=== PATIENT | female | born 1990 | race Caucasian/White ===

== ENCOUNTER 2016-11-09 00:05 | Inpatient (IN) | payer OTHER ==
[2016-11-09] MEDS ORDERED: RINGER'S SOLUTION,LACTATED 1,000 ML IV PRN (00:35)
[2016-11-09] MEDS ORDERED: OXYTOCIN/DEXTROSE 5%-WATER 30 UNITS/500 ML BAG IV ONE ×3 (00:35→10:38)
[2016-11-09] MEDS ORDERED: LIDOCAINE HCL 50 ML VIAL PERI PRN (00:35)
[2016-11-09] MEDS ORDERED: BUTORPHANOL TARTRATE 2 MG/ML VIAL IV PRN (00:35)
[2016-11-09] MEDS ORDERED: ONDANSETRON HCL/PF 2 MG/ML VIAL IV PRN ×2 (00:35→07:43)
[2016-11-09] MEDS ORDERED: RINGER'S SOLUTION,LACTATED 1,000 ML IV ONE (00:35)
[2016-11-09] MEDS: DEXTROSE 5%-LACTATED RINGERS 1,000 ML IV PRN ×2 (00:55→09:16)
[2016-11-09] MEDS ORDERED: NALOXONE HCL 1 MG/1 ML SYRG IV PRN (07:43)
[2016-11-09] MEDS ORDERED: BUPIVACAINE HCL/0.9 % NACL/PF 250 ML EP PRN (07:43)
--- NOTE | 2016-11-09 07:49 | OR ---
Anesthesia Pre Procedure Eval Date of Service: 11/09/16 Pre Procedure Evaluation: Last Vital Signs Temp 36.4 C L 07/24/14 07:00 Pulse Resp BP 118/65 07/24/14 07:00 Pulse Ox Anesthesia Pre Procedure Evaluation Heart Rate: 96 Blood Pressure: 126/82 Temperature: 36.6 Respiratory Rate: 18 SaO2: 99% DATE: 11/09/2016 TIME: 7:45 AM INDICATIONS: Active labor, pain control PAST MEDICAL HISTORY: Multipara patient being induced for labor requesting labor analgesia History of GERD: No History of smoking: No History of sleep apnea: No EXAM: Heart regular; lungs clear ASSESSMENT OF MEDICAL STATUS: Appropriate candidate for labor analgesia PLANNED PROCEDURE: Epidural placement for labor analgesia Home Medications: HOME MEDICATIONS RX: Vits96/Iron Fum/Folic [ S] 1 tab PO DAILY 05/30/13 [Last Taken 11/07/16 08:00] Ascorbic Acid [Vitamin C] 500 mg PO DAILY 07/22/14 [Last Taken 11/07/16 08:00]
--- NOTE | 2016-11-09 08:05 | OR ---
Anesthesia Procedure Note - Anesthesia Procedure Note Date of Service: 11/09/16 Narrative: Vital Signs - Last Taken Temp 36.4 C L 07/24/14 07:00 Pulse Resp BP 118/65 07/24/14 07:00 Pulse Ox 11/09/16 08:02 ANESTHESIA PROCEDURE NOTE Date of Procedure: 11/09/2016 Time of procedure: 07 40. Performed by: JAQUELIN Huitron CRNA, MSN Supervisor Laboratory Animal Facility: Yamilet Argueta RN. Preprocedure diagnosis: Labor induction, labor pain. Post procedure diagnosis: Same. Procedure:Epidural for labor analgesia L3 4. Indications: Labor pain. Findings: See below. Details of the procedure: The patient was placed on the side of the bed in sitting positionand prepped with DuraPrep then draped in a sterile fashion. Lidocaine 1% was infiltrated to the skin and subcutaneous tissues at the level of the L3 4 interspace. An 18-gauge Touhy needle was used to approach the epidural space with loss of resistance technique. Since the patient is requesting ambulation at this point and later analgesia no fentanyl was used and the epidural catheter was then threaded approximately 4 cm in the epidural needle was removed. The catheter was taped in place and after careful aspiration 3 mL of 1.5% lidocaine with 1-200,000 epinephrine was injected without change in maternal heart rate or sensorium. . EBL: Minimal. Fluids: N/A. Specimen: N/A. Post procedure condition: The patient tolerated the procedure well. No complications were noted. Thank you for this consultation. Christian Chase CRNA, ARNP, MSN
--- NOTE | 2016-11-09 08:51 | PN ---
Progess Note - Interim Narrative: 11/09/16 08:43 Pt is comfortable but feeling the contractions. VSS SVE: /-2, SROM during check with copious amount of clear fluid FHTs: 140's, mod jessica, no decels, + accels [place]: q2-4 min A/P: Cont. current plan Anticipate
[2016-11-09] MEDS ORDERED: BENZOCAINE/MENTHOL 81 SPRAY CAN TP PRN (10:38)
[2016-11-09] MEDS ORDERED: oxyCODONE HCL/ACETAMINOPHEN 1 TAB TABLET PO PRN ×2 (10:38)
[2016-11-09] MEDS ORDERED: HYDROCORTISONE 30 APPL TUBE TP PRN (10:38)
[2016-11-09] MEDS ORDERED: SENNOSIDES 8.6 MG TABLET PO PRN (10:38)
[2016-11-09] MEDS ORDERED: BISACODYL 10 MG SUPP.RECT RC PRN (10:38)
[2016-11-09] MEDS ORDERED: GLYCERIN/WITCH HAZEL LEAF 40 APPL BOX TP PRN (10:38)
--- NOTE | 2016-11-09 10:41 | OR ---
Operative Report - Dictated Report Narrative: Spontaneous Vaginal Delivery Viable female with APGARS of 8 at 1 minute and 9 at 5 minutes. She delivered at 1019. Presentation was RIKA. The left anterior shoulder delivered with gentle downward traction followed by posterior shoulder and the remainder of the baby. Cord was clamped and cut after approximately 90 seconds. Weight: 8 pounds 3.5 ounces or 3728 g Placenta was delivered spontaneously and intact. The first-degree perineal laceration was noted and was hemostatic but would heal better with reapproximation so this was done with 3-0 Vicryl in a subcuticular fashion. Estimated blood loss: 100 ml Mother and baby tolerated delivery well. History for MU Definition: * The number of deliveries resulting in a live the patient experienced prior to current hospitalization * The previous delivery of live twins or any live multiple gestation is considered one live event. *If primagravida or nulliparous is documented select zero for the number of previous live births. Live Events: 2
[2016-11-09] MEDS: IBUPROFEN 800 MG TABLET PO PRN ×2 (14:10→20:21)
[2016-11-09] MEDS: DOCUSATE SODIUM 100 MG CAPSULE PO SCH (20:21)
[2016-11-10] MEDS: IBUPROFEN 800 MG TABLET PO PRN ×3 (02:41→16:09)
[2016-11-10] MEDS: DOCUSATE SODIUM 100 MG CAPSULE PO SCH ×2 (08:44→20:10)
--- NOTE | 2016-11-10 11:04 | PN ---
Subjective - Date and Time Seen Date: 11/10/16 Subjective Narrative: day 1, s/p doing well. no complaints. . normal lochia. Objective - Vitals Vitals: Last Vital Signs Temp 36.8 C 11/10/16 08:30 Pulse 88 11/10/16 08:30 Resp 20 11/10/16 08:30 BP 120/64 11/10/16 08:30 Pulse Ox 98 11/10/16 08:30 - Exam Constitutional: Present: Alert, Oriented x3, Cooperative Respiratory: Present: no respiratory distress Cardiovascular/Chest: Present: normal peripheral pulses Abdomen: Present: soft, nontender, nondistended, other - fundus firm at umbilicus. Extremity: Present: normal range of motion, no pedal edema, no calf tenderness Skin Exam: Present: normal color, warm/dry, no cyanosis Eye contact: Present: cooperative, good eye contact, normal speech Cauti Physician Documentation - Urinary Catheter Management Urethral (Callaway) Date of Insertion: 11/09/16 Time of Insertion: 09:50 Date of Removal: 11/09/16 Time of Removal: 10:05 Assessment/Plan Plan Narrative: A: PPD#1, s/p , stable and well. Plan: routine care. ambulation encouraged. Arian Urrutia MD
[2016-11-11] MEDS: IBUPROFEN 800 MG TABLET PO PRN ×2 (00:06→09:06)
[2016-11-11] MEDS: DOCUSATE SODIUM 100 MG CAPSULE PO SCH (09:06)
[2016-11-11 09:43] VITALS: BP 116/73
--- NOTE | 2016-11-11 10:54 | PN ---
Subjective - Date and Time Seen Date: 11/11/16 Subjective Narrative: day 2, s/p no complaints. ambulating well. . normal lochia. wants to go home. Objective - Vitals Vitals: Last Vital Signs Temp 36.8 C 11/11/16 08:45 Pulse 78 11/11/16 08:45 Resp 18 11/11/16 08:45 BP 116/73 11/11/16 08:45 Pulse Ox 99 11/11/16 08:45 - Exam Constitutional: Present: Alert, Oriented x3, Cooperative Respiratory: Present: no respiratory distress Cardiovascular/Chest: Present: normal peripheral pulses Abdomen: Present: nontender, nondistended, other - fundus firm and one finger below umbilicus Extremity: Present: normal range of motion, no pedal edema, no calf tenderness Skin Exam: Present: normal color, warm/dry, no cyanosis Eye contact: Present: cooperative, good eye contact, normal speech Cauti Physician Documentation - Urinary Catheter Management Urethral (Callaway) Date of Insertion: 11/09/16 Time of Insertion: 09:50 Date of Removal: 11/09/16 Time of Removal: 10:05 Assessment/Plan Plan Narrative: A: PPD#2, s/p stable and well. Plan: will discharge home today. Arian Urrutia MD
== END 2016-11-11 11:40 | disposition home or self-care (01) | DRG 775 ==
LOC: OB 00:05
PROVIDERS: ADMIT Obstetrics & Gynecology Gynecologic Oncology; ATTEND Obstetrics & Gynecology Gynecologic Oncology
PROC: 10E0XZZ Delivery of Products of Conception, External Approach (ICD-10-PCS; principal; 2016-11-09)
PROC: 3E033VJ Introduction of Other Hormone into Peripheral Vein, Percutaneous Approach (ICD-10-PCS; 2016-11-09)
PROC: 4A1HXCZ Monitoring of Products of Conception, Cardiac Rate, External Approach (ICD-10-PCS; 2016-11-09)
PROC: 0HQ9XZZ Repair Perineum Skin, External Approach (ICD-10-PCS; 2016-11-09)
PROC: 00HU33Z Insertion of Infusion Device into Spinal Canal, Percutaneous Approach (ICD-10-PCS; 2016-11-09)
DX: O70.0 First degree perineal laceration during delivery (principal); O99.02 Anemia complicating childbirth; D64.9 Anemia, unspecified; Z3A.39 39 weeks gestation of pregnancy; Z37.0 Single live birth

== ENCOUNTER 2019-03-30 06:08 | Inpatient (IN) ==
[2019-03-30] MEDS ORDERED: ONDANSETRON 4 MG TAB.RAPDIS PO PRN (06:51)
[2019-03-30] MEDS ORDERED: RINGER'S SOLUTION,LACTATED 1,000 ML IV ONE (06:51)
[2019-03-30] MEDS ORDERED: BUTORPHANOL TARTRATE 2 MG/ML VIAL IV PRN ×2 (06:51)
[2019-03-30] MEDS ORDERED: OXYTOCIN/DEXTROSE 5%-WATER 30 UNITS/500 ML BAG IV ONE ×2 (06:51→16:12)
[2019-03-30] MEDS ORDERED: LIDOCAINE HCL 50 ML VIAL PERI PRN (06:51)
[2019-03-30] MEDS: RINGER'S SOLUTION,LACTATED 1,000 ML IV PRN ×2 (07:22→14:56)
--- NOTE | 2019-03-30 07:24 | HP ---
Chief Complaint - Chief Complaint Date of Service: 03/30/19 Time of Service: 07:21 Chief Complaint: labor induction History of Present Illness: The patient is a 28 year old at 39w0d who presents to L&D for an elective IOL. She denies vb or lof. Reports irregular ctx. Fetus is active. Medical History (Last Reviewed 03/30/19 @ 07:22 by Corinna Manzano MD) Anemia Onset Date: ~201605/03/142016. w/pregnancies Onset Date: Unknown Surgical History: Surgical History (Last Reviewed 03/30/19 @ 07:22 by Corinna Manzano MD) H/O hand surgery Onset Date: Unknown finger surgery age 4 Family History: Family History (Last Reviewed 03/30/19 @ 07:22 by Corinna Manzano MD) Father Hairy cell leukemia Sleep apnea Hypertension Restless leg syndrome Grandmother Alzheimers disease Grandmother Myocardial infarction Stent placement Hypertension Mother Diabetes Social History: (Last Reviewed 03/30/19 @ 07:22 by Corinna Manzano MD) Social History: adopted: No foster care: No longterm: No Marital status: lives independently: Yes household members: spouse, children number of children: 3 caregiver/support person: Yes current occupational status: previously employed current occupation: stay at home mom current occupational exposures/hazards: No Highest education level completed: some college, no degree Service: No Tobacco: Smoking Status: Never smoker Alcohol: alcohol intake: never Substance Use: substance use type: does not use Dietary Habits: caffeine: No Pets: pets and animals: dog(s) Exercise: Physical activity type: none Personal Safety: victim of physical abuse: No victim of emotional abuse: No Review Of Systems (GEN) - Review of Systems Generalized/Overall Review: Present: No Symptoms Reported Misc: All systems neg except as marked Allergies/Adverse Reactions: Allergies Allergy/AdvReac Type Severity Reaction Status Date / Time No Known Allergies Allergy Verified 03/30/19 06:50 Home Medications: HOME MEDICATIONS prenat.vits,asia,[id number]-[id number] 1 tab PO DAILY 08/13/18 [Last Taken Unknown] azithromycin 250 mg tablet See Rx Instructions PO .COMPLEX #6 tab 03/23/19 [Last Taken Unknown] Exam - Exam Vital Signs: Vital Signs - Last Taken Temp 36.7 C 03/30/19 06:52 Pulse 99 01/06/20 06:52 Resp 18 03/30/19 06:52 BP 126/79 03/30/19 06:52 Pulse Ox 99 03/30/19 06:52 Constitutional: Present: Alert, Oriented x3, Cooperative, No distress ENT Exam: Present: hearing grossly normal Breasts: Present: Exam deferred Respiratory: Present: lungs clear, normal breath sounds Cardiovascular/Chest: Present: regular rate, rhythm Abdomen: Present: soft, nontender, nondistended /Rectal: Present: Other - 1.5/60/-2 AROM for clear fluid Extremity: Present: non-tender, no calf tenderness Skin Exam: Present: normal color, warm/dry, no cyanosis Appearance: Present: appropriate appearance Eye contact: Present: cooperative Thoughts: Present: normal thought pattern Assessment/Plan - Narrative Narrative: 28 year old at 39w 0d Elective IOL: AROM for clear fluid, will start pitocin GBS negative: prophylaxis not indicated
[2019-03-30 10:00] LABS: Cocaine Ur Negative (NEGATIVE); Urine Barbiturate Negative (NEGATIVE); Urine Benzodiazepines Negative (NEGATIVE); Urine Opiates Negative (NEGATIVE); Urine PCP Negative (NEGATIVE); Urine THC Negative (NEGATIVE)
[2019-03-30] MEDS ORDERED: NALOXONE HCL 1 MG/1 ML SYRG IV PRN (11:41)
[2019-03-30] MEDS ORDERED: ONDANSETRON HCL/PF 2 MG/ML VIAL IV PRN (11:41)
[2019-03-30] MEDS ORDERED: BUPIVACAINE HCL/0.9 % NACL/PF 250 ML EP PRN (11:41)
[2019-03-30] MEDS ORDERED: fentaNYL CITRATE/PF 50 MCG/ML AMPUL IT SCH (11:45)
--- NOTE | 2019-03-30 12:56 | ANES ---
Anesthesia Pre Procedure Eval Vitals/Labs: Last Vital Signs Temp 36.7 C 03/30/19 06:52 Pulse 99 03/30/19 06:52 Resp 18 03/30/19 06:52 BP 126/79 03/30/19 06:52 Pulse Ox 99 03/30/19 06:52 HOME MEDICATIONS prenat.vits,asia,[id number] 1 tab PO DAILY 08/13/18 [Last Taken Unknown] Allergies/Adverse Reactions: Allergies Allergy/AdvReac Type Severity Reaction Status Date / Time No Known Allergies Allergy Verified 03/30/19 06:50 - Planned Procedure Planned Procedure: ELECTIVE INDUCTION 39 WEEKS Medication List Reviewed:: Yes Allergies Verified: Yes Medical History (Last Reviewed 03/30/19 @ 12:55 by Franklin Fernandez CRNA) Anemia Onset Date: ~201605/03/142016. w/pregnancies Onset Date: Unknown Surgical History (Last Reviewed 03/30/19 @ 12:55 by Franklin Fernandez CRNA) H/O hand surgery Onset Date: Unknown finger surgery age 4 Family History (Last Reviewed 03/30/19 @ 12:55 by Franklin Fernandez CRNA) Father Hairy cell leukemia Sleep apnea Hypertension Restless leg syndrome Grandmother Alzheimers disease Grandmother Myocardial infarction Stent placement Hypertension Mother Diabetes - Family Anesthesia History Family History:: no untoward family reactions to anesthesia - Airway/Neck/Teeth Within Normal Limits:: Yes Teeth Condition: intact Neck Exam: full range of motion Mallampatti Score: 1 Thyromental (T-M) distance: > 6 cm Mandibulo Hyoid distance: > 3 cm - Respiratory Respiratory Physical: lungs clear Smoking Status: Never smoker Sleep Apnea currently treated: No Sleep Apnea by current assessment: No - Cardiovascular Tolerate Activity: Good Heart Sounds: S1 & S2, Regular - Gastrointestinal NPO since: 0600 - Anesthesia Assessment and Plan ASA Class: PS, II, E Anesthesia Type Plan: Epidural Planned difficult intubation/equipment available: No
--- NOTE | 2019-03-30 12:56 | ANES ---
Post Anesthesia Discharge - Transfer of Care Transfer of Care handoff given to nurse: Yes - Anesthesia Post Op Note Anesthesia Post Op Note: Care transferred to OB RN
--- NOTE | 2019-03-30 12:57 | ANES ---
Post Anesthesia Assessment - Vital Signs Vitals: Last Vital Signs Temp 36.7 C 03/30/19 06:52 Pulse 99 03/30/19 06:52 Resp 18 03/30/19 06:52 BP 126/79 03/30/19 06:52 Pulse Ox 99 03/30/19 06:52 Airway Patency: Normal - Mental Status Level Of Consciousness: Awake - Pain Level Pain Score: 2 - N/V Assessment Nausea/Vomiting Presence: None Dehydration:: No
--- NOTE | 2019-03-30 12:57 | ANES ---
Anesthesia Procedure Note Procedure Note: ANESTHESIA PROCEDURE NOTE Date of Procedure: 03/30/2019 Time of procedure: 1230. Performed by: Kendall Fernandez CRNA Idea Man: None. Preprocedure diagnosis: Active labor. Post procedure diagnosis: Same. Procedure: Insertion of labor epidural. Indications: The patient is a 28-year-old multigravida female in active labor requesting labor epidural for pain management. Findings: See below. Details of the procedure: The patient was placed in a sitting position. Back was prepped with DuraPrep. Patient was then draped in a sterile fashion. Lidocaine 1% was infiltrated to the skin and subcutaneous tissues at the level of the L3 4 interspace. The epidural space was identified using a 18-gauge Tuohy needle with [id number] technique. 20 mcg fentanyl was given intrathecally using a 27 ga. spinal needle. Epidural catheter was inserted without difficulty. Negative test dose was elicited using 5 mL of 1.5% preservative-free lidocaine plus epinephrine 1 200,000. The epidural catheter was then taped and secured in place. EBL: Minimal. Fluids: N/A. Specimen: N/A. Post procedure condition: The patient tolerated the procedure well. No complications were noted. Thank you for this consultation. Almeida CRNA
[2019-03-30] MEDS ORDERED: HYDROCORTISONE 30 APPL TUBE TP PRN (16:12)
[2019-03-30] MEDS ORDERED: diphenhydrAMINE HCL 25 MG CAPSULE PO PRN (16:12)
[2019-03-30] MEDS ORDERED: BENZOCAINE/MENTHOL 81 SPRAY CAN TP PRN (16:12)
[2019-03-30] MEDS ORDERED: BISACODYL 10 MG SUPP.RECT RC PRN (16:12)
[2019-03-30] MEDS ORDERED: HYDROcodone/ACETAMINOPHEN 1 EACH TABLET PO PRN (16:12)
[2019-03-30] MEDS ORDERED: GLYCERIN/WITCH HAZEL LEAF 40 APPL BOX TP PRN (16:12)
[2019-03-30] MEDS ORDERED: SENNOSIDES 8.6 MG TABLET PO PRN (16:12)
--- NOTE | 2019-03-30 16:28 | OR ---
Operative Report - Dictated Report Narrative: Date of delivery: 03/30/2019 Time of delivery: 1536 Gender: female weight: 3534 grams APGARS: 8/9 Description of the procedure: The patient is a 28 year old at 39w 0d who presented to labor and delivery for elective induction of labor. She was AROM and then was started on pitocin. She progressed to complete dilation. She delivered a viable female in LOLIS presentation. The shoulders delivered without difficulty followed by the rest of the . The placenta was delivered by expression and appeared intact. There was a first degree perineal laceration which was hemostatic and thus not repaired. EBL: 100 mL Complications: none History for MU Definition: * The number of deliveries resulting in a live the patient experienced prior to current hospitalization * The previous delivery of live twins or any live multiple gestation is considered one live event. *If primagravida or nulliparous is documented select zero for the number of previous live births. Live Events: 3
[2019-03-30] MEDS: IBUPROFEN 800 MG TABLET PO PRN (18:02)
[2019-03-30] MEDS: DOCUSATE SODIUM 100 MG CAPSULE PO SCH (20:44)
[2019-03-31] MEDS: HYDROcodone/ACETAMINOPHEN 1 EACH TABLET PO PRN ×4 (01:20→16:33)
[2019-03-31] MEDS: IBUPROFEN 800 MG TABLET PO PRN ×3 (06:37→21:17)
--- NOTE | 2019-03-31 08:29 | PN ---
Subjective - Date and Time Seen Date: 03/31/19 Time: 08:27 Subjective Narrative: Patient without complaints Objective Objective Narrative: See vital signs - Review of Systems Generalized/Overall Review: Reports: No Symptoms Reported Abdominal: Denies: Abdominal Pain Genitourinary Symptoms: Reports: Other - normal vaginal bleeding Misc: All systems neg except as marked - Vitals Vitals: Last Vital Signs Temp 36.9 C 03/31/19 00:00 Pulse 84 03/31/19 00:00 Resp 18 03/31/19 00:00 BP 120/72 03/31/19 00:00 Pulse Ox 95 03/31/19 00:00 - Exam Constitutional: Present: Alert, Oriented x3, Cooperative, No distress ENT Exam: Present: hearing grossly normal Abdomen: Present: soft, nontender, nondistended - fundus is firm Extremity: Present: non-tender, no calf tenderness Skin Exam: Present: normal color, warm/dry, no cyanosis Appearance: Present: appropriate appearance Eye contact: Present: cooperative Thoughts: Present: normal thought pattern Cauti Physician Documentation - Urinary Catheter Management Urethral (Callaway) Urethral Indwelling: No Date of Insertion: 03/30/19 Time of Insertion: 13:00 Date of Removal: 03/30/19 Time of Removal: 15:32 Assessment/Plan Plan Narrative: PPD 1 s/p Doing well Discharge home
[2019-03-31] MEDS: DOCUSATE SODIUM 100 MG CAPSULE PO SCH (10:31)
[2019-04-01] MEDS: DOCUSATE SODIUM 100 MG CAPSULE PO SCH ×2 (01:20→09:02)
[2019-04-01] MEDS: IBUPROFEN 800 MG TABLET PO PRN (07:33)
[2019-04-01 07:46] VITALS: BP 113/77
[2019-04-01] MEDS: HYDROcodone/ACETAMINOPHEN 1 EACH TABLET PO PRN (09:02)
--- NOTE | 2019-04-01 09:04 | PN ---
Subjective - Date and Time Seen Date: 04/01/19 Time: 09:04 Objective - Vitals Vitals: Last Vital Signs Temp 37 C 04/01/19 07:30 Pulse 84 04/01/19 07:30 Resp 18 04/01/19 07:30 BP 113/77 04/01/19 07:30 Pulse Ox 98 04/01/19 07:30 Patient denies complaints. Breast-feeding Lochia wnl abdomen - soft, nontender Uterus -firm, at umbilicus - 2 no calf tenderness Impression: day #2 - s/p spontaneous vaginal delivery. Plan: Routine discharge instructions Cauti Physician Documentation - Urinary Catheter Management Urethral (Callaway) Urethral Indwelling: No Date of Insertion: 03/30/19 Time of Insertion: 13:00 Date of Removal: 03/30/19 Time of Removal: 15:32
== END 2019-04-01 10:45 | disposition home or self-care (01) | DRG 807 ==
LOC: OB 06:08 → MS 20:57
PROVIDERS: ADMIT Obstetrics & Gynecology; ATTEND Obstetrics & Gynecology
CPT/HCPCS: 59025; 80307; 86850